=== PATIENT | male | born 2000 | race Caucasian/White ===

== ENCOUNTER 2022-11-07 22:38 | Inpatient (IN) | payer BC ==
[2022-11-07] MEDS ORDERED: Sodium Chloride 0.9% 10 ML Syringe FLUSH PRN (23:02)
[2022-11-07] MEDS ORDERED: Sodium Chloride 0.9% 1,000 ML IV STA (23:02)
[2022-11-07] MEDS ORDERED: Ondansetron 4 MG/2 ML SDV IVPUSH ONE (23:02)
[2022-11-07] MEDS ORDERED: HYDROmorphone 1 MG/ML Syringe IVPUSH ONE (23:04)
[2022-11-08] MEDS ORDERED: Iopamidol 612 MG/ML 100 ML Bottle IVPUSH ONE (00:35)
[2022-11-08] MEDS ORDERED: Piperacillin/Tazobactam 4.5 GM in Sodium Chloride 0.9% 100 ML IV ONE (01:12)
[2022-11-08] MEDS: Lactated Ringers 1,000 ML IV SCH ×3 (02:37→21:48)
[2022-11-08] MEDS ORDERED: Ondansetron 4 MG/2 ML SDV IVPUSH PRN (03:46)
[2022-11-08] MEDS: HYDROmorphone 0.5 MG/0.5 ML Syringe IVPUSH PRN ×3 (04:13→12:49)
[2022-11-08] MEDS: Acetaminophen 325 MG Tab PO SCH ×3 (08:52→20:54)
[2022-11-08] MEDS: Ketorolac 15 MG/ML SDV IVPUSH SCH ×3 (08:52→20:55)
[2022-11-08] MEDS: Piperacillin/Tazobactam 4.5 GM in Sodium Chloride 0.9% 100 ML IV SCH ×2 (08:53→17:24)
[2022-11-08] MEDS: TESTOSTERONE TOP SCH (13:14)
[2022-11-08] MEDS: Nicotine Polacrilex 2 MG Gum CHEW PRN (21:50)
[2022-11-09] MEDS: Nicotine Polacrilex 2 MG Gum CHEW PRN ×2 (01:00→05:49)
[2022-11-09] MEDS: Acetaminophen 325 MG Tab PO SCH ×4 (01:51→20:37)
[2022-11-09] MEDS: Ketorolac 15 MG/ML SDV IVPUSH SCH ×4 (01:52→20:38)
[2022-11-09] MEDS: Piperacillin/Tazobactam 4.5 GM in Sodium Chloride 0.9% 100 ML IV SCH ×3 (01:53→17:36)
[2022-11-09] MEDS: HYDROmorphone 0.5 MG/0.5 ML Syringe IVPUSH PRN (05:49)
[2022-11-09] MEDS: Lactated Ringers 1,000 ML IV SCH ×2 (08:58→18:34)
[2022-11-09] MEDS: TESTOSTERONE TOP SCH (08:58)
[2022-11-10] MEDS: Acetaminophen 325 MG Tab PO SCH ×4 (01:49→22:00)
[2022-11-10] MEDS: Piperacillin/Tazobactam 4.5 GM in Sodium Chloride 0.9% 100 ML IV SCH ×3 (01:50→18:10)
[2022-11-10] MEDS: Ketorolac 15 MG/ML SDV IVPUSH SCH ×4 (01:50→21:59)
[2022-11-10] MEDS: Lactated Ringers 1,000 ML IV SCH (04:35)
[2022-11-10] MEDS ORDERED: Nicotine Polacrilex 2 MG Gum CHEW PRN (07:41)
[2022-11-10] MEDS: D5 1/2 NS w/ 20 mEq/L KCl 1,000 ML IV SCH ×2 (08:21→16:27)
[2022-11-10] MEDS: TESTOSTERONE TOP SCH (08:21)
[2022-11-10] MEDS ORDERED: Ondansetron 4 MG/2 ML SDV IVPUSH PRN (13:23)
[2022-11-10] MEDS ORDERED: fentaNYL 100 MCG/2 ML SDV IVPUSH PRN (13:23)
[2022-11-10] MEDS ORDERED: HYDROmorphone 0.5 MG/0.5 ML Syringe IVPUSH PRN (13:23)
[2022-11-10] MEDS ORDERED: Lidocaine 1% 2 ML ONE (14:59)
[2022-11-10] MEDS ORDERED: Midazolam 1 MG/ML 2 ML SDV ONE (14:59)
[2022-11-10] MEDS ORDERED: Propofol 200 MG/20 ML SDV ONE (14:59)
[2022-11-10] MEDS ORDERED: fentaNYL 100 MCG/2 ML SDV ONE (14:59)
[2022-11-10] MEDS ORDERED: Ondansetron 4 MG/2 ML SDV ONE (14:59)
[2022-11-10] MEDS ORDERED: Rocuronium 50 MG/5 ML Vial ONE ×2 (14:59→18:02)
[2022-11-10] MEDS: Bupivacaine 0.5%/EPINEPHrine 1:200,000 50 ML MDV ONE ×2 (16:18→17:15)
[2022-11-10] MEDS: Lidocaine 1% 30 ML SDV ONE ×2 (16:18→17:15)
[2022-11-10] MEDS ORDERED: Ketorolac 30 MG/ML SDV ONE (17:17)
[2022-11-10] MEDS ORDERED: HYDROmorphone 0.5 MG/0.5 ML Syringe ONE (17:17)
[2022-11-10] MEDS ORDERED: Sugammadex Sodium 200 MG/2 ML VIAL ONE (17:18)
[2022-11-10] MEDS ORDERED: HYDROmorphone 0.5 MG/0.5 ML Syringe IVPUSH ONE (19:15)
[2022-11-11] MEDS: Acetaminophen 325 MG Tab PO SCH ×2 (01:51→08:46)
[2022-11-11] MEDS: Piperacillin/Tazobactam 4.5 GM in Sodium Chloride 0.9% 100 ML IV SCH ×2 (01:52→08:47)
[2022-11-11] MEDS: Ketorolac 15 MG/ML SDV IVPUSH SCH ×2 (01:52→08:46)
[2022-11-11] MEDS ORDERED: Ibuprofen 600 MG Tab PO PRN (08:32)
[2022-11-11] MEDS ORDERED: oxyCODONE 5 MG Tab PO PRN (08:32)
[2022-11-11] MEDS: TESTOSTERONE TOP SCH (08:45)
== END 2022-11-11 12:34 | disposition home or self-care (01) | DRG 233 ==
LOC: JD.ED 22:38 → JD.MS 11-08 01:52 → JD.ED 11-08 03:30
PROVIDERS: ADMIT Surgery; ATTEND Surgery
PROC: 0DTJ4ZZ Resection of Appendix, Percutaneous Endoscopic Approach (ICD-10-PCS; principal; 2022-11-10)
PROC: 0W9G4ZZ Drainage of Peritoneal Cavity, Percutaneous Endoscopic Approach (ICD-10-PCS; 2022-11-10)
DX: K35.33 Acute appendicitis with perforation, localized peritonitis, and gangrene, with abscess (principal); F17.210 Nicotine dependence, cigarettes, uncomplicated; K85.80 Other acute pancreatitis without necrosis or infection
CPT/HCPCS: 00840; 36415; 74177; 74177-26; 80048; 80053; 81001; 83605; 83690; 85025; 87040; 99285; A9270-GY; J1170; J1885; J2250; J2405; J2543; J2704; J3010; J3480; J3490; J7030; J7120; Q9967

== ENCOUNTER 2025-04-11 04:21 | Emergency (ER) | payer BC | END 2025-04-11 05:34 | disposition home or self-care (01) | LOC: JD.ED 04:21 | DX: J02.8 Acute pharyngitis due to other specified organisms (principal); B97.89 Other viral agents as the cause of diseases classified elsewhere; Z79.899 Other long term (current) drug therapy | CPT/HCPCS: 87651; 99283; A9270 ==